=== PATIENT | male | born 1995 ===

== ENCOUNTER 2021-06-07 08:07 | Outpatient (CLI) | payer OTHER, SELFPAY ==
[2021-06-07 09:05] LABS: SARS-CoV-2 RNA PCR Negative (Negative)
== END 2021-06-07 08:08 ==
LOC: CHSLAB 08:07
PROVIDERS: PCP Family Medicine; Visit Provider Family Medicine
DX: Z20.822 Contact with and (suspected) exposure to COVID-19 (principal)
CPT/HCPCS: C9803; U0003; U0005